=== PATIENT | male | born 1985 | race Caucasian/White ===

== ENCOUNTER 2017-09-04 12:45 | Emergency (ER) | payer SELFPAY ==
[2017-09-04] VITALS (8 sets, daily range): BP systolic 120–129; BP diastolic 61–76; PULSE 101–128; RESP 15–20; TEMP 97.8–98; O2SAT 97–100
[~2017-09-04] VITALS: Ht 182.9 cm; Wt 76.0 kg
[2017-09-04] MEDS ORDERED: SODIUM CHLORIDE 0.9% FLUSH 10 ML FLUSH IVF PRN (13:00)
--- NOTE | 2017-09-04 13:04 | PD ---
HPI Chief Complaint: Overdose Time Seen by Provider: 12:58 Travel History International Travel<30 days: No Contact w/Intl Traveler<30days: No Traveled to known affect area: No History of Present Illness HPI This is a 31-year-old male who presents via EMS for evaluation. Reportedly the patient was found unresponsive in a [employer] bathroom. Initially the staff of the [facility] started CPR however when fire and rescue arrived the patient had palpable pulse but a respiratory rate of 2-4. He was given 0.8 mg of Narcan through a full IV however paramedics believe that the peripheral IV was not in the vein and likely went I am. He was then given additional 0.8 mg of Narcan when paramedics arrived and the patient became much more awake and alert, respiratory rate improved to the 20s. He is currently awake and alert and acting somewhat bizarre. He says that he feels "great." He is currently denying any illicit substance use. He reports that he is from [place]. review of systems is essentially negative. [facility] Social History Tobacco Use: Yes (unable to obtain) Allergies-Medications (Allergen,Severity, Reaction): Coded Allergies: No Known Allergies (Verified Allergy, Unknown, 09/04/17) Reported Meds & Prescriptions Reported Meds & Active Scripts Active No Active Prescriptions or Reported Medications Review of Systems ROS Limitations: Altered Mental Status Except as stated in HPI: all other systems reviewed are Neg Physical Exam Exam Limitations: Altered Mental Status Narrative GENERAL: This is a well-developed well-nourished male who is drowsy but awake. GCS 13. SKIN: Warm and dry. HEAD: Atraumatic. Normocephalic. EYES: Pupils equal and round. No scleral icterus. No injection or drainage. ENT: No nasal bleeding or discharge. Mucous membranes pink and moist. NECK: Trachea midline. No JVD. CARDIOVASCULAR: Regular rate and rhythm. No murmur appreciated. RESPIRATORY: No accessory muscle use. Clear to auscultation. Breath sounds equal bilaterally. GASTROINTESTINAL: Abdomen soft, non-tender, nondistended. Hepatic and splenic margins not palpable. MUSCULOSKELETAL: No obvious deformities. No clubbing. No cyanosis. No edema. NEUROLOGICAL: Awake, drowsy. No obvious cranial nerve deficits. Motor grossly within normal limits. Mildly slurred speech. Responds to commands. Data Data Last Documented VS Vital Signs Date Time Temp Pulse Resp B/P (MAP) Pulse Ox O2 Delivery O2 Flow Rate FiO2 09/04/17 18:10 98.0 95 15 120/76 (91) 100 09/04/17 16:40 Room Air Orders Orders Electrocardiogram (09/04/17 12:59) Complete Blood Count With Diff (09/04/17 12:59) Comprehensive Metabolic Panel (09/04/17 12:59) Chest, Single Ap (09/04/17 12:59) Ct Brain W/O Iv Contrast(Rout) (09/04/17 12:59) Iv Access Insert/Monitor (09/04/17 12:59) Ecg Monitoring (09/04/17 12:59) Oximetry (09/04/17 12:59) Sodium Chloride 0.9% Flush (Ns Flush) (09/04/17 13:00) Alcohol (Ethanol) (09/04/17 12:59) Salicylates (Aspirin) (09/04/17 12:59) Tylenol (Acetaminophen) (09/04/17 12:59) Lactic Acid (09/04/17 14:17) Sodium Chlor 0.9% 1000 Ml Inj (Ns 1000 M (09/04/17 14:41) Sodium Chlor 0.9% 1000 Ml Inj (Ns 1000 M (09/04/17 14:41) Naloxone Inj (Narcan Inj) (09/04/17 15:30) Ed Discharge Order (09/04/17 17:56) Labs Laboratory Tests Test 09/04/17 12:51 09/04/17 14:50 White Blood Count 15.8 TH/MM3 Red Blood Count 4.76 MIL/MM3 Hemoglobin 15.3 GM/DL Hematocrit 44.9 % Mean Corpuscular Volume 94.2 FL Mean Corpuscular Hemoglobin 32.0 PG Mean Corpuscular Hemoglobin Concent 34.0 % Red Cell Distribution Width 13.9 % Platelet Count 279 TH/MM3 Mean Platelet Volume 8.6 FL Neutrophils (%) (Auto) 81.3 % Lymphocytes (%) (Auto) 13.8 % Monocytes (%) (Auto) 4.2 % Eosinophils (%) (Auto) 0.4 % Basophils (%) (Auto) 0.3 % Neutrophils # (Auto) 12.8 TH/MM3 Lymphocytes # (Auto) 2.2 TH/MM3 Monocytes # (Auto) 0.7 TH/MM3 Eosinophils # (Auto) 0.1 TH/MM3 Basophils # (Auto) 0.0 TH/MM3 CBC Comment DIFF FINAL Differential Comment Blood Urea Nitrogen 15 MG/DL Creatinine 1.45 MG/DL Random Glucose 149 MG/DL Total Protein 8.2 GM/DL Albumin 4.2 GM/DL Calcium Level 8.5 MG/DL Alkaline Phosphatase 87 U/L Aspartate Amino Transf (AST/SGOT) 178 U/L Alanine Aminotransferase (ALT/SGPT) 415 U/L Total Bilirubin 0.7 MG/DL Sodium Level 140 MEQ/L Potassium Level 3.7 MEQ/L Chloride Level 103 MEQ/L Carbon Dioxide Level 20.3 MEQ/L Anion Gap 17 MEQ/L Estimat Glomerular Filtration Rate 57 ML/MIN Salicylates Level 2.5 MG/DL Acetaminophen Level LESS THAN 2.0 MCG/ML Ethyl Alcohol Level LESS THAN 3 MG/DL Lactic Acid Level 2.3 mmol/L [facility] Medical Decision Making Medical Screen Exam Complete: Yes Emergency Medical Condition: Yes Medical Record Reviewed: Yes Differential Diagnosis Drug overdose, closed head injury, acute psychosis, encephalitis, cardiac arrest Narrative Course The patient was placed on ECG monitoring pulse oximetry. A 12-lead EKG was obtained revealing sinus tachycardia with a rate of 124. Lab work, chest x-ray , CT brain have been ordered. Chest x-ray and CT of the brain are normal. CBC reveals WBC count of 15.8 AST 178, ALT 415, GFR 57 anion gap slightly elevated at 17, lactic acid has been added on. Is elevated at 2.3. The patient was given a total of 2 L of IV fluids. At this point in time the plan is to allow the patient remain here until he is sober and able to be discharged safely. Diagnosis Primary Impression: Opiate overdose Additional Impression: Elevated liver enzymes [facility] Additional Instructions: Follow-up with Santos Greene. Follow-up with primary care physician. Return for any emergent medical conditions. Med/Other Pt SpecificInfo: No Change to Meds Scripts No Active Prescriptions or Reported Meds Disposition: 01 DISCHARGE HOME Condition: Stable Daniel Matthews September 04, 2017 13:04
[2017-09-04 13:37] LABS: AUTOMATED NEUTROPHIL # 12.8 TH/MM3 (1.8-7.7); BASOPHIL % 0.3 % (0.0-2.0); EOSINOPHIL # 0.1 TH/MM3 (0-0.4); EOSINOPHIL % 0.4 % (0.0-4.0); HEMATOCRIT 44.9 % (39.0-51.0); HEMOGLOBIN 15.3 GM/DL (13.0-17.0); LYMPH % 13.8 % (9.0-44.0); LYMPHOCYTE # 2.2 TH/MM3 (1.0-4.8); MEAN CELL VOLUME 94.2 FL (80.0-100.0); MEAN PLATELET VOLUME 8.6 FL (7.0-11.0); MONO % 4.2 % (0.0-8.0); MONOCYTE # 0.7 TH/MM3 (0-0.9); NEUT % 81.3 % (16.0-70.0); PLATELET COUNT 279 TH/MM3 (150-450); RED BLOOD COUNT 4.76 MIL/MM3 (4.50-5.90); RED CELL DISTRIBUTION WIDTH 13.9 % (11.6-17.2); WHITE BLOOD COUNT 15.8 TH/MM3 (4.0-11.0)
[2017-09-04 13:58] LABS: ALBUMIN 4.2 GM/DL (3.4-5.0); ALT (GPT) 415 U/L (12-78); AST (GOT) 178 U/L (15-37); BICARBONATE 20.3 MEQ/L (21.0-32.0); BLOOD UREA NITROGEN 15 MG/DL (7-18); CALCIUM 8.5 MG/DL (8.5-10.1); CHLORIDE 103 MEQ/L (98-107); CREATININE 1.45 MG/DL (0.60-1.30); GLOMERULAR FILTRATION RATE 57 ML/MIN (>89); GLUCOSE,RANDOM 149 MG/DL (74-106); SODIUM (NA) 140 MEQ/L (136-145)
[2017-09-04 14:00] LABS: ALKALINE PHOSPHATASE 87 U/L (45-117); TOTAL BILIRUBIN ADULT 0.7 MG/DL (0.2-1.0); TOTAL PROTEIN 8.2 GM/DL (6.4-8.2)
--- NOTE | 2017-09-04 14:07 | RADRPT ---
EXAM DATE/TIME: 09/04/2017 13:39 [facility] COMPARISON: No previous studies available for comparison. INDICATIONS : Found unresponsive RADIATION DOSE: 36.90 CTDIvol (mGy) MEDICAL HISTORY : None SURGICAL HISTORY : None. ENCOUNTER: Initial ACUITY: 1 day PAIN SCALE: Non-responsive LOCATION: cranial TECHNIQUE: Multiple contiguous axial images were obtained of the head. Using automated exposure control and adj ustment of the mA and/or kV according to patient size, radiation dose was kept as low as reasonably a chievable to obtain optimal diagnostic quality images. DICOM format image data is available electro nically for review and comparison. FINDINGS: CEREBRUM: The ventricles are normal for age. No evidence of midline shift, mass lesion, hemorrhage or acute in farction. No extra-axial fluid collections are seen. POSTERIOR FOSSA: The cerebellum and brainstem are intact. The 4th ventricle is midline. The cerebellopontine angle i s unremarkable. EXTRACRANIAL: The visualized portion of the orbits is intact. SKULL: The calvaria is intact. No evidence of skull fracture. CONCLUSION: 1. No acute intracranial abnormalities. Vicente Moore MD on September 04, 2017 at 14:01 Board Certified Radiologist. This report was verified electronically.
[2017-09-04 14:18] LABS: ACETAMINOPHEN LESS THAN 2.0 MCG/ML (10.0-30.0)
--- NOTE | 2017-09-04 14:25 | RADRPT ---
EXAM DATE/TIME: 09/04/2017 13:14 [facility] COMPARISON: No previous studies available for comparison. INDICATIONS : Evaluate lung status. Overdose. MEDICAL HISTORY : None. SURGICAL HISTORY : None. ENCOUNTER: Initial ACUITY: 1 day PAIN SCORE: 0/10 LOCATION: Bilateral chest FINDINGS: A single view of the chest demonstrates the lungs to be symmetrically aerated without evidence of mas s, infiltrate or effusion. The cardiomediastinal contours are unremarkable. Osseous structures are intact. CONCLUSION: No acute disease. Vicente Moore MD on September 04, 2017 at 14:22 Board Certified Radiologist. This report was verified electronically.
[2017-09-04] MEDS ORDERED: SODIUM CHLOR 0.9% 1000 ML INJ 1,000 ML IV SCH (14:41)
--- NOTE | 2017-09-04 14:42 | PD ---
Data Data Last Documented VS Vital Signs Date Time Temp Pulse Resp B/P (MAP) Pulse Ox O2 Delivery O2 Flow Rate FiO2 09/04/17 18:10 98.0 95 15 120/76 (91) 100 09/04/17 16:40 Room Air Orders Orders Electrocardiogram (09/04/17 12:59) Complete Blood Count With Diff (09/04/17 12:59) Comprehensive Metabolic Panel (09/04/17 12:59) Chest, Single Ap (09/04/17 12:59) Ct Brain W/O Iv Contrast(Rout) (09/04/17 12:59) Iv Access Insert/Monitor (09/04/17 12:59) Ecg Monitoring (09/04/17 12:59) Oximetry (09/04/17 12:59) Sodium Chloride 0.9% Flush (Ns Flush) (09/04/17 13:00) Drug Screen, Random Urine (09/04/17 12:59) Alcohol (Ethanol) (09/04/17 12:59) Salicylates (Aspirin) (09/04/17 12:59) Tylenol (Acetaminophen) (09/04/17 12:59) Lactic Acid (09/04/17 14:17) Sodium Chlor 0.9% 1000 Ml Inj (Ns 1000 M (09/04/17 14:41) Sodium Chlor 0.9% 1000 Ml Inj (Ns 1000 M (09/04/17 14:41) Naloxone Inj (Narcan Inj) (09/04/17 15:30) Ed Discharge Order (09/04/17 17:56) Labs Laboratory Tests Test 09/04/17 12:51 09/04/17 14:50 White Blood Count 15.8 TH/MM3 Red Blood Count 4.76 MIL/MM3 Hemoglobin 15.3 GM/DL Hematocrit 44.9 % Mean Corpuscular Volume 94.2 FL Mean Corpuscular Hemoglobin 32.0 PG Mean Corpuscular Hemoglobin Concent 34.0 % Red Cell Distribution Width 13.9 % Platelet Count 279 TH/MM3 Mean Platelet Volume 8.6 FL Neutrophils (%) (Auto) 81.3 % Lymphocytes (%) (Auto) 13.8 % Monocytes (%) (Auto) 4.2 % Eosinophils (%) (Auto) 0.4 % Basophils (%) (Auto) 0.3 % Neutrophils # (Auto) 12.8 TH/MM3 Lymphocytes # (Auto) 2.2 TH/MM3 Monocytes # (Auto) 0.7 TH/MM3 Eosinophils # (Auto) 0.1 TH/MM3 Basophils # (Auto) 0.0 TH/MM3 CBC Comment DIFF FINAL Differential Comment Blood Urea Nitrogen 15 MG/DL Creatinine 1.45 MG/DL Random Glucose 149 MG/DL Total Protein 8.2 GM/DL Albumin 4.2 GM/DL Calcium Level 8.5 MG/DL Alkaline Phosphatase 87 U/L Aspartate Amino Transf (AST/SGOT) 178 U/L Alanine Aminotransferase (ALT/SGPT) 415 U/L Total Bilirubin 0.7 MG/DL Sodium Level 140 MEQ/L Potassium Level 3.7 MEQ/L Chloride Level 103 MEQ/L Carbon Dioxide Level 20.3 MEQ/L Anion Gap 17 MEQ/L Estimat Glomerular Filtration Rate 57 ML/MIN Salicylates Level 2.5 MG/DL Acetaminophen Level LESS THAN 2.0 MCG/ML Ethyl Alcohol Level LESS THAN 3 MG/DL Lactic Acid Level 2.3 mmol/L [facility] Medical Record Reviewed: Yes Supervised Visit with ROBBIE: Yes Narrative Course I, Dr. Franklin, have reviewed the advance practice practitioner's documentation and am in agreement, met with the patient face to face, made the diagnosis, and the medical decision making was done by me. *My assessment and Findings: Patient arrives following drug overdose. He was observed here for about 5 hours. Patient was clinically sober and ambulatory throughout the ED. Workup reveals no major abnormality and the physical exam gradually improved during ER course. CBC & BMP Diagram 09/04/17 12:51 Total Protein 8.2, Albumin 4.2, Calcium Level 8.5, Alkaline Phosphatase 87, Aspartate Amino Transf (AST/SGOT) 178 H, Alanine Aminotransferase (ALT/SGPT) 415 H, Total Bilirubin 0.[address] 09/04/17 1259 Signed Impressions: Service Date/Time: , September 04, 2017 13:39 - CONCLUSION: 1. No acute intracranial abnormalities. Vicente Moore MD Chest X-Ray 09/04/17 1254 Signed Impressions: Service Date/Time: , September 04, 2017 13:14 - CONCLUSION: No acute disease. Vicente Moore MD Scripts No Active Prescriptions or Reported Meds Austin Roblero MD September 04, 2017 14:42
[2017-09-04] MEDS: SODIUM CHLOR 0.9% 1000 ML INJ 1,000 ML IV SCH ×2 (14:51→15:39)
[2017-09-04] MEDS: NALOXONE HCL 2 MG/2 ML VIAL IM ONE (15:30)
--- NOTE | 2017-09-06 08:48 | EKG ---
Date Performed: 09/04/2017 Time Performed: 12:51:34 PTAGE: 31 years EKG: SINUS TACHYCARDIA NONSPECIFIC T-WAVE ABNORMALITY ABNORMAL RHYTHM ECG NO PREVIOUS TRACING DOCTOR: Vy Parham Interpretating Date/Time 09/06/2017 08:42:59
== END 2017-09-04 18:20 | disposition home or self-care (01) ==
LOC: NEPE 12:45
DX: T40.601A Poisoning by unspecified narcotics, accidental (unintentional), initial encounter (principal); R74.8 Abnormal levels of other serum enzymes; R00.0 Tachycardia, unspecified; R94.31 Abnormal electrocardiogram [ECG] [EKG]
CPT/HCPCS: 70450; 71045; 80053; 80307; 83605; 85025; 93005; 96360; 99284; J7030; J2310